=== PATIENT | male | born 1990 | race African-American/Black ===

== ENCOUNTER 2024-03-14 13:45 | Emergency (ER) | payer SELFPAY ==
[~2024-03-14] VITALS: Ht 177.8 cm; Wt 60.0 kg
[2024-03-14 13:48] VITALS: O2SAT 98
[2024-03-14] MEDS: HALOPERIDOL LACTATE 5MG/ML VIAL IM ONE (14:11)
[2024-03-14 14:59] LABS: BASOPHILS % 1.4 % (0.0-2.0); EOSINOPHILS % 3.4 % (0.0-5.0); HEMATOCRIT. 37.2 % (42.0-52.0); HEMOGLOBIN. 12.7 g/dL (14.0-18.0); LYMPHOCYTES % 21.4 % (20.0-50.0); MEAN CORPUSCULAR HEMOGLOBIN 31.1 pg (28.0-32.0); MEAN CORPUSCULAR HGB CONC 34.2 g/dL (31.0-37.0); MEAN CORPUSCULAR VOLUME 90.9 fL (80.0-94.0); MEAN PLATELET VOLUME 7.8 fl (7.4-10.4); MONOCYTES % 9.6 % (2.0-8.0); NEUTROPHILS % 64.2 % (40.0-76.0); PLATELET 245 x1000/uL (130-400); WHITE BLOOD COUNT 3.5 x1000/uL (4.5-11.0)
[2024-03-14 15:02] LABS: CARBON DIOXIDE 29 mEq/L (21-32); CHLORIDE 108 mEq/L (98-107); POTASSIUM 3.9 mEq/L (3.5-5.1); SODIUM 141 mEq/L (136-145)
[2024-03-14 15:03] LABS: CALCIUM 8.9 mg/dL (8.7-10.4)
[2024-03-14 15:07] LABS: CREATININE 0.9 mg/dL (0.6-1.3)
[2024-03-14 15:08] LABS: GLUCOSE 116 mg/dL (70-105); UREA NITROGEN BLOOD 15 mg/dL (9-23)
[2024-03-14 15:09] LABS: ACETAMINOPHEN < 2 ug/mL (10-30); ALANINE AMINOTRANSFERASE 27 IU/L (10-49); ALBUMIN 3.9 g/dL (3.2-4.8); ASPARTATE AMINOTRANSFERASE 49 IU/L (<34)
[2024-03-14 15:10] LABS: BILIRUBIN DIRECT 0.3 mg/dL (<=3.0); BILIRUBIN TOTAL 0.8 mg/dL (0.1-1.0); PROTEIN TOTAL 6.2 g/dL (6.0-8.3)
[2024-03-14 15:12] LABS: THYROID STIMULATING HORMONE 0.38 uIU/mL (0.55-4.78)
[2024-03-14 15:18] LABS: ETHANOL BLOOD < 10 mg/dL (<10)
[2024-03-14] MEDS: LORAZEPAM 2MG/ML INJ IM ONE (21:40)
[2024-03-15 06:07] LABS: CLARITY URINE CLEAR (CLEAR); COLOR URINE DARK YELLOW (YELLOW); GLUCOSE URINE NEGATIVE (NEGATIVE); KETONES URINE NEGATIVE (NEGATIVE); LEUKOCYTE ESTERASE URINE NEGATIVE (NEGATIVE); NITRITE URINE NEGATIVE (NEGATIVE); OCCULT BLOOD URINE NEGATIVE (NEGATIVE); PROTEIN URINE NEGATIVE (NEGATIVE)
[2024-03-15 06:14] LABS: *AMPHETAMINES SCREEN URINE NEGATIVE (NEGATIVE); *BARBITURATES SCREEN URINE NEGATIVE (NEGATIVE); *BENZODIAZEPINES SCREEN URINE NEGATIVE (NEGATIVE); *COCAINE SCREEN URINE NEGATIVE (NEGATIVE); METHADONE URINE SCREEN NEGATIVE (NEGATIVE); OPIATES URINE SCREEN NEGATIVE (NEGATIVE)
[2024-03-15 06:15] LABS: CANNABINOID URINE SCREEN PRESUMPTIVE POSITIVE (NEGATIVE); ECSTASY MDMA SCREEN URINE NEGATIVE (NEGATIVE); PHENCYCLIDINE URINE SCREEN NEGATIVE (NEGATIVE)
[2024-03-15] MEDS: QUETIAPINE FUMARATE 25MG TABLET PO NR (13:43)
[2024-03-15] MEDS: LORAZEPAM 2MG/ML INJ IM NR (13:44)
[2024-03-15 15:02] VITALS: BP 113/39; PULSE 90; RESP 18; TEMP 97.7
[2024-03-15] MEDS ORDERED: QUETIAPINE FUMARATE 50MG TABLET PO SCH (21:00)
== END 2024-03-15 17:49 | disposition left against medical advice (07) ==
LOC: ER 13:45
DX: F23 Brief psychotic disorder (principal); Z20.822 Contact with and (suspected) exposure to COVID-19
CPT/HCPCS: 80076; 80048; 80307; 80329; 80320; 84443; 85025; 36415; 96372; 99285; 87426; 80305; 81003; J1630; Z7610 ×2; J2060; G0480

== ENCOUNTER 2024-08-08 22:54 | Emergency (ER) | payer MEDICAID ==
[~2024-08-08] VITALS: Ht 177.8 cm; Wt 64.0 kg
[~2024-08-08 22:54] MED LIST: ACET-2708 MT; HALO5TAB MT; IBUP-2029 MT
[2024-08-08 23:05] VITALS: O2SAT 99
[2024-08-08 23:34] VITALS: BP 154/78; PULSE 80; RESP 18; TEMP 36.78072; O2SAT 99
[2024-08-09] MEDS ORDERED: NAPR-1176 MT (00:17)
[2024-08-09 00:30] VITALS: TEMP 98.2
[2024-08-09] MEDS: ACETAMINOPHEN 325MG TABLET PO ONE (00:30)
== END 2024-08-09 00:28 | disposition home or self-care (01) ==
LOC: ER 22:54
DX: K76.89 Other specified diseases of liver (principal); F12.10 Cannabis abuse, uncomplicated; Z79.899 Other long term (current) drug therapy; Z79.1 Long term (current) use of non-steroidal anti-inflammatories (NSAID)
CPT/HCPCS: 99283

== ENCOUNTER 2024-08-09 01:16 | Emergency (ER) | payer MEDICAID ==
[~2024-08-09] VITALS: Ht 177.8 cm; Wt 64.0 kg
[~2024-08-09 01:16] MED LIST changes: +NAPR-1176 MT
[2024-08-09 01:37] VITALS: O2SAT 98
[2024-08-09 01:39] VITALS: BP 111/70; PULSE 66; RESP 18; TEMP 36.89184; O2SAT 98
[2024-08-09 03:35] LABS: BASOPHILS % 1.1 % (0.0-2.0); CHLORIDE 107 mEq/L (98-107); EOSINOPHILS % 7.8 % (0.0-5.0); HEMATOCRIT. 42.1 % (42.0-52.0); HEMOGLOBIN. 14.1 g/dL (14.0-18.0); LYMPHOCYTES % 34.3 % (20.0-50.0); MEAN CORPUSCULAR HGB CONC 33.5 g/dL (31.0-37.0); MEAN CORPUSCULAR VOLUME 92.5 fL (80.0-94.0); MEAN PLATELET VOLUME 8.1 fl (7.4-10.4); MONOCYTES % 14.7 % (2.0-8.0); NEUTROPHILS % 42.1 % (40.0-76.0); PLATELET 252 x1000/uL (130-400); POTASSIUM 5.1 mEq/L (3.5-5.1); RED BLOOD CELL COUNT 4.56 mill/uL (4.7-6.1); SODIUM 141 mEq/L (136-145); WHITE BLOOD COUNT 4.3 x1000/uL (4.5-11.0)
[2024-08-09 03:36] LABS: CARBON DIOXIDE 29 mEq/L (21-32)
[2024-08-09 03:41] LABS: GLUCOSE 97 mg/dL (70-105); UREA NITROGEN BLOOD 9 mg/dL (9-23)
[2024-08-09 03:43] LABS: ACETAMINOPHEN < 2 ug/mL (10-30)
== END 2024-08-09 11:28 | disposition left against medical advice (07) ==
LOC: ER 01:16
DX: F20.9 Schizophrenia, unspecified (principal); F12.90 Cannabis use, unspecified, uncomplicated; Z76.0 Encounter for issue of repeat prescription; Z79.899 Other long term (current) drug therapy
CPT/HCPCS: 36415; 80048; 80307; 80329; 85025; 99283

== ENCOUNTER 2024-08-11 01:08 | Emergency (ER) | payer MEDICAID ==
[~2024-08-11] VITALS: Ht 177.8 cm; Wt 68.3 kg
[2024-08-11 01:35] VITALS: O2SAT 99
[2024-08-11 02:51] VITALS: BP 106/61; PULSE 71; RESP 20; TEMP 37.00296; O2SAT 99
== END 2024-08-11 02:51 | disposition home or self-care (01) ==
LOC: ER 01:08
DX: R10.84 Generalized abdominal pain (principal); M79.601 Pain in right arm; M79.602 Pain in left arm; F20.9 Schizophrenia, unspecified
CPT/HCPCS: 99282

== ENCOUNTER 2024-09-01 03:23 | Emergency (ER) | payer MEDICAID ==
[~2024-09-01] VITALS: Ht 177.8 cm; Wt 66.8 kg
[2024-09-01 04:55] VITALS: O2SAT 99
[2024-09-01] MEDS ORDERED: HALO5TAB MT (05:02)
[2024-09-01 05:33] VITALS: BP 113/77; PULSE 119; RESP 18; TEMP 37.05852; O2SAT 99
== END 2024-09-01 05:32 | disposition home or self-care (01) ==
LOC: ER 03:30
DX: Z76.0 Encounter for issue of repeat prescription (principal); Z79.899 Other long term (current) drug therapy
CPT/HCPCS: 99281

== ENCOUNTER 2024-09-01 10:50 | Emergency (ER) | payer MEDICAID ==
[~2024-09-01] VITALS: Ht 177.8 cm; Wt 77.1 kg
[2024-09-01 10:54] VITALS: BP 108/67; PULSE 86; RESP 16; TEMP 98.3; O2SAT 100
== END 2024-09-01 15:55 | disposition home or self-care (01) ==
LOC: ER 10:58
DX: F20.9 Schizophrenia, unspecified (principal); Z76.0 Encounter for issue of repeat prescription; Z79.899 Other long term (current) drug therapy
CPT/HCPCS: 99281

== ENCOUNTER 2024-09-01 16:01 | Emergency (ER) | payer MEDICAID ==
[~2024-09-01] VITALS: Ht 177.8 cm; Wt 77.1 kg
[2024-09-01 16:23] VITALS: BP 110/67; PULSE 92; RESP 16; TEMP 98.9; O2SAT 100
== END 2024-09-01 19:00 | disposition left against medical advice (07) ==
LOC: ER 16:01
DX: Z00.8 Encounter for other general examination (principal); Z53.21 Procedure and treatment not carried out due to patient leaving prior to being seen by health care provider

== ENCOUNTER 2024-09-03 11:49 | Emergency (ER) | payer MEDICAID ==
[~2024-09-03] VITALS: Ht 175.3 cm; Wt 66.0 kg
[2024-09-03 12:08] VITALS: BP 98/67; PULSE 117; RESP 18; TEMP 98.2; O2SAT 98
[2024-09-04] MEDS ORDERED: FAMO-135 MT (15:13)
[2024-09-04] MEDS ORDERED: IBUP-2029 MT (18:29)
== END 2024-09-03 16:20 | disposition home or self-care (01) ==
LOC: ER 11:49
DX: K76.89 Other specified diseases of liver (principal); Z00.00 Encounter for general adult medical examination without abnormal findings; Z79.899 Other long term (current) drug therapy
CPT/HCPCS: 99281

== ENCOUNTER 2024-09-03 16:21 | Emergency (ER) | payer MEDICAID ==
[~2024-09-03] VITALS: Ht 175.3 cm; Wt 70.0 kg
[2024-09-03 16:32] VITALS: O2SAT 99
[2024-09-03 22:51] LABS: EOSINOPHILS % 2.1 % (0.0-5.0); HEMATOCRIT. 45.9 % (42.0-52.0); HEMOGLOBIN. 15.7 g/dL (14.0-18.0); LYMPHOCYTES % 28.4 % (20.0-50.0); MEAN CORPUSCULAR HEMOGLOBIN 31.4 pg (28.0-32.0); MEAN CORPUSCULAR HGB CONC 34.3 g/dL (31.0-37.0); MEAN CORPUSCULAR VOLUME 91.7 fL (80.0-94.0); MONOCYTES % 7.5 % (2.0-8.0); PLATELET 289 x1000/uL (130-400); RED BLOOD CELL COUNT 5.01 mill/uL (4.7-6.1); RED CELL DISTRIBUTION WIDTH 12.9 % (11.6-14.6); WHITE BLOOD COUNT 5.2 x1000/uL (4.5-11.0)
[2024-09-03 22:57] LABS: CHLORIDE 107 mEq/L (98-107); POTASSIUM 4.3 mEq/L (3.5-5.1); SODIUM 142 mEq/L (136-145)
[2024-09-03 22:58] LABS: CALCIUM 10.3 mg/dL (8.7-10.4); CARBON DIOXIDE 29 mEq/L (21-32)
[2024-09-03 23:03] LABS: GLUCOSE 97 mg/dL (70-105); UREA NITROGEN BLOOD 13 mg/dL (9-23)
[2024-09-03 23:05] LABS: ACETAMINOPHEN < 2 ug/mL (10-30)
[2024-09-03 23:06] LABS: ETHANOL BLOOD < 10 mg/dL (<10)
[2024-09-04] MEDS: HALOPERIDOL LACTATE 5MG/ML VIAL IM STA (02:42)
[2024-09-04 02:43] LABS: CLARITY URINE CLEAR (CLEAR); COLOR URINE DARK YELLOW (YELLOW); GLUCOSE URINE NEGATIVE (NEGATIVE); KETONES URINE TRACE (NEGATIVE); LEUKOCYTE ESTERASE URINE NEGATIVE (NEGATIVE); NITRITE URINE NEGATIVE (NEGATIVE); OCCULT BLOOD URINE NEGATIVE (NEGATIVE); PH URINE 5.5 (4.5-8.0); PROTEIN URINE TRACE (NEGATIVE); SPECIFIC GRAVITY URINE 1.037 (1.005-1.030); UROBILINOGEN URINE 0.2 E.U./dL (0.2-1.0)
[2024-09-04 02:56] LABS: *AMPHETAMINES SCREEN URINE NEGATIVE (NEGATIVE); *BARBITURATES SCREEN URINE NEGATIVE (NEGATIVE); *BENZODIAZEPINES SCREEN URINE NEGATIVE (NEGATIVE); *COCAINE SCREEN URINE NEGATIVE (NEGATIVE)
[2024-09-04 02:57] LABS: CANNABINOID URINE SCREEN NEGATIVE (NEGATIVE); ECSTASY MDMA SCREEN URINE NEGATIVE (NEGATIVE); METHADONE URINE SCREEN NEGATIVE (NEGATIVE); OPIATES URINE SCREEN NEGATIVE (NEGATIVE); PHENCYCLIDINE URINE SCREEN NEGATIVE (NEGATIVE)
[2024-09-04 05:40] LABS: RBC URINE NONE SEEN /hpf (0-2); WBC URINE 0-2 /hpf (0-2)
[2024-09-04 05:41] LABS: BACTERIA URINE NONE SEEN; SQUAMOUS EPITHELIAL CELL URINE NONE SEEN /lpf (RARE/1+)
[2024-09-04 10:00] VITALS: BP 112/65; PULSE 73; RESP 16; TEMP 36.83628; O2SAT 98
[2024-09-04] MEDS ORDERED: FAMO-135 MT (15:13)
[2024-09-04] MEDS ORDERED: IBUP-2029 MT (18:29)
[2024-09-05] MEDS ORDERED: HALO5TAB2 MT (00:08)
== END 2024-09-04 14:10 | disposition home or self-care (01) ==
LOC: ER 16:21
DX: F23 Brief psychotic disorder (principal); Z79.899 Other long term (current) drug therapy; Z79.1 Long term (current) use of non-steroidal anti-inflammatories (NSAID); Z59.00 Homelessness unspecified; Z20.822 Contact with and (suspected) exposure to COVID-19
CPT/HCPCS: 36415; 80048; 80305; 80307; 80320; 80329; 81003; 85025; 87426; 93005; 99285; G0480

== ENCOUNTER 2024-09-04 12:19 | Emergency (ER) | payer MEDICAID ==
[~2024-09-04] VITALS: Ht 177.8 cm; Wt 82.0 kg
[2024-09-04 12:28] VITALS: O2SAT 98
[2024-09-04] MEDS: ACETAMINOPHEN 325MG TABLET PO NR (13:30)
[2024-09-04] MEDS ORDERED: FAMOTIDINE 20MG TABLET PO ONE (13:30)
[2024-09-04] MEDS ORDERED: ACETAMINOPHEN 325MG TABLET PO ONE (13:30)
[2024-09-04 14:45] LABS: BASOPHILS % 0.8 % (0.0-2.0); EOSINOPHILS % 1.9 % (0.0-5.0); HEMATOCRIT. 45.7 % (42.0-52.0); HEMOGLOBIN. 15.4 g/dL (14.0-18.0); LYMPHOCYTES % 19.4 % (20.0-50.0); MEAN CORPUSCULAR HEMOGLOBIN 30.7 pg (28.0-32.0); MEAN CORPUSCULAR HGB CONC 33.7 g/dL (31.0-37.0); MEAN CORPUSCULAR VOLUME 91.1 fL (80.0-94.0); NEUTROPHILS % 69.9 % (40.0-76.0); PLATELET 301 x1000/uL (130-400); RED BLOOD CELL COUNT 5.02 mill/uL (4.7-6.1); RED CELL DISTRIBUTION WIDTH 12.9 % (11.6-14.6); WHITE BLOOD COUNT 4.5 x1000/uL (4.5-11.0)
[2024-09-04 14:56] LABS: CARBON DIOXIDE 31 mEq/L (21-32); CHLORIDE 105 mEq/L (98-107); POTASSIUM 4.3 mEq/L (3.5-5.1); SODIUM 142 mEq/L (136-145)
[2024-09-04 14:57] LABS: CALCIUM 10.2 mg/dL (8.7-10.4)
[2024-09-04 15:01] LABS: GLUCOSE 63 mg/dL (70-105)
[2024-09-04 15:02] LABS: UREA NITROGEN BLOOD 16 mg/dL (9-23)
[2024-09-04 15:03] LABS: ALANINE AMINOTRANSFERASE 17 IU/L (10-49); ALBUMIN 4.6 g/dL (3.2-4.8); ASPARTATE AMINOTRANSFERASE 21 IU/L (<34)
[2024-09-04 15:04] LABS: BILIRUBIN TOTAL 0.7 mg/dL (0.1-1.0); PROTEIN TOTAL 7.5 g/dL (6.0-8.3)
[2024-09-04] MEDS ORDERED: FAMO-135 MT (15:13)
[2024-09-04] MEDS: FAMOTIDINE 20MG TABLET PO NR (16:11)
[2024-09-04 16:12] VITALS: BP 100/60; PULSE 98; RESP 19; TEMP 37.00296; O2SAT 98
[2024-09-04] MEDS ORDERED: IBUP-2029 MT (18:29)
[2024-09-05] MEDS ORDERED: HALO5TAB2 MT (00:08)
== END 2024-09-04 16:14 | disposition home or self-care (01) ==
LOC: ER 12:19
DX: R10.13 Epigastric pain (principal); F20.9 Schizophrenia, unspecified; Z79.899 Other long term (current) drug therapy
CPT/HCPCS: 36415; 80053; 85025; 99283

== ENCOUNTER 2024-09-04 17:41 | Emergency (ER) | payer MEDICAID ==
[~2024-09-04] VITALS: Ht 177.8 cm; Wt 73.0 kg
[~2024-09-04 17:41] MED LIST changes: +FAMO-135 MT
[2024-09-04 17:46] VITALS: O2SAT 99
[2024-09-04 17:47] VITALS: BP 133/84; PULSE 100; RESP 16; TEMP 98.6; O2SAT 98
[2024-09-04] MEDS ORDERED: IBUP-2029 MT (18:29)
[2024-09-05] MEDS ORDERED: HALO5TAB2 MT (00:08)
== END 2024-09-05 01:04 | disposition left against medical advice (07) ==
LOC: ER 17:41
DX: M79.671 Pain in right foot (principal); F20.9 Schizophrenia, unspecified; Z79.899 Other long term (current) drug therapy; Z79.1 Long term (current) use of non-steroidal anti-inflammatories (NSAID)
CPT/HCPCS: 29505; 73630; 99283

== ENCOUNTER 2024-09-04 21:43 | Emergency (ER) | payer MEDICAID ==
[~2024-09-04] VITALS: Ht 167.6 cm; Wt 63.0 kg
[2024-09-04 22:10] VITALS: O2SAT 99
[2024-09-05] MEDS ORDERED: HALO5TAB2 MT (00:08)
[2024-09-05 02:39] VITALS: BP 129/71; PULSE 75; RESP 18; TEMP 36.72516; O2SAT 100
== END 2024-09-05 02:43 | disposition home or self-care (01) ==
LOC: ER 21:43
DX: F20.9 Schizophrenia, unspecified (principal); Z76.0 Encounter for issue of repeat prescription; Z79.1 Long term (current) use of non-steroidal anti-inflammatories (NSAID); Z79.899 Other long term (current) drug therapy
CPT/HCPCS: 99281

== ENCOUNTER 2024-09-05 09:13 | Emergency (ER) | payer MEDICAID ==
[~2024-09-05] VITALS: Ht 172.7 cm; Wt 83.0 kg
[~2024-09-05 09:13] MED LIST changes: +HALO5TAB2 MT
[2024-09-05 09:17] VITALS: O2SAT 99
[2024-09-05 10:23] VITALS: BP 133/64; PULSE 85; RESP 16; TEMP 98.6; O2SAT 98
[2024-09-05] MEDS: HALOPERIDOL 5MG TABLET PO ONE (10:46)
== END 2024-09-05 10:47 | disposition home or self-care (01) ==
LOC: ER 09:53
DX: F29 Unspecified psychosis not due to a substance or known physiological condition (principal); F20.9 Schizophrenia, unspecified; Z79.1 Long term (current) use of non-steroidal anti-inflammatories (NSAID); Z79.899 Other long term (current) drug therapy
CPT/HCPCS: 99283; J1630

== ENCOUNTER 2024-09-05 14:28 | Emergency (ER) | payer SELFPAY ==
[~2024-09-05] VITALS: Ht 175.3 cm; Wt 70.0 kg
[2024-09-05 14:30] VITALS: PULSE 85; RESP 18; O2SAT 99
[2024-09-05 14:42] VITALS: BP 134/88; TEMP 98.9; O2SAT 99
[2024-09-05] MEDS: GUAIFENESIN/DM 600MG/30MG ER TAB 12HR PO ONE (18:38)
== END 2024-09-05 18:40 | disposition home or self-care (01) ==
LOC: ER 14:44
DX: J06.9 Acute upper respiratory infection, unspecified (principal); F20.9 Schizophrenia, unspecified; F41.9 Anxiety disorder, unspecified; F32.A Depression, unspecified
CPT/HCPCS: 99282

== ENCOUNTER 2024-09-05 23:48 | Emergency (ER) | payer SELFPAY ==
[~2024-09-05] VITALS: Ht 175.3 cm; Wt 77.0 kg
[2024-09-06 00:30] VITALS: BP 147/75; PULSE 78; RESP 18; TEMP 97.1; O2SAT 99
[2024-09-06 01:01] LABS: EOSINOPHILS % 4.9 % (0.0-5.0); HEMATOCRIT. 45.7 % (42.0-52.0); HEMOGLOBIN. 15.7 g/dL (14.0-18.0); LYMPHOCYTES % 37.9 % (20.0-50.0); MEAN CORPUSCULAR HEMOGLOBIN 31.5 pg (28.0-32.0); MEAN CORPUSCULAR HGB CONC 34.4 g/dL (31.0-37.0); MEAN CORPUSCULAR VOLUME 91.5 fL (80.0-94.0); MEAN PLATELET VOLUME 7.8 fl (7.4-10.4); MONOCYTES % 11.2 % (2.0-8.0); PLATELET 270 x1000/uL (130-400); RED BLOOD CELL COUNT 4.99 mill/uL (4.7-6.1); RED CELL DISTRIBUTION WIDTH 12.8 % (11.6-14.6); WHITE BLOOD COUNT 3.5 x1000/uL (4.5-11.0)
[2024-09-06 01:06] LABS: CARBON DIOXIDE 30 mEq/L (21-32); CHLORIDE 105 mEq/L (98-107); SODIUM 140 mEq/L (136-145)
[2024-09-06 01:07] LABS: CALCIUM 9.8 mg/dL (8.7-10.4)
[2024-09-06 01:12] LABS: CREATININE 0.9 mg/dL (0.6-1.3); GLUCOSE 94 mg/dL (70-105); UREA NITROGEN BLOOD 9 mg/dL (9-23)
[2024-09-06 01:14] LABS: ALANINE AMINOTRANSFERASE 20 IU/L (10-49); ALBUMIN 4.7 g/dL (3.2-4.8); ASPARTATE AMINOTRANSFERASE 27 IU/L (<34); BILIRUBIN DIRECT 0.3 mg/dL (<=3.0); PROTEIN TOTAL 7.8 g/dL (6.0-8.3)
== END 2024-09-06 04:45 | disposition home or self-care (01) ==
LOC: ER 23:48
DX: R10.9 Unspecified abdominal pain (principal); F41.9 Anxiety disorder, unspecified; F32.A Depression, unspecified; F20.9 Schizophrenia, unspecified; Z79.899 Other long term (current) drug therapy
CPT/HCPCS: 36415; 80048; 80076; 85025; 99283

== ENCOUNTER 2024-09-06 06:08 | Emergency (ER) | payer SELFPAY ==
[~2024-09-06] VITALS: Ht 165.1 cm; Wt 68.7 kg
[2024-09-06 06:15] VITALS: BP 121/72; PULSE 89; RESP 15; TEMP 98; O2SAT 99
== END 2024-09-06 08:04 | disposition home or self-care (01) ==
LOC: ER 06:18
DX: B34.9 Viral infection, unspecified (principal); F20.9 Schizophrenia, unspecified; F41.9 Anxiety disorder, unspecified; F32.9 Major depressive disorder, single episode, unspecified; Z79.1 Long term (current) use of non-steroidal anti-inflammatories (NSAID); Z79.899 Other long term (current) drug therapy
CPT/HCPCS: 99281

== ENCOUNTER 2024-09-06 14:52 | Emergency (ER) | payer SELFPAY ==
[~2024-09-06] VITALS: Ht 177.8 cm; Wt 72.0 kg
[2024-09-06 14:54] VITALS: BP 125/80; TEMP 98.3; O2SAT 99
[2024-09-06 14:56] VITALS: PULSE 88; RESP 16; O2SAT 99
[2024-09-06] MEDS: GUAIFENESIN/DM 600MG/30MG ER TAB 12HR PO PRN (19:04)
== END 2024-09-06 18:25 | disposition home or self-care (01) ==
LOC: ER 14:52
DX: J06.9 Acute upper respiratory infection, unspecified (principal); F20.9 Schizophrenia, unspecified; F32.9 Major depressive disorder, single episode, unspecified; F41.9 Anxiety disorder, unspecified; Z79.1 Long term (current) use of non-steroidal anti-inflammatories (NSAID); Z79.899 Other long term (current) drug therapy; Z20.822 Contact with and (suspected) exposure to COVID-19
CPT/HCPCS: 87804 ×2; 99283; 87426; Z7610

== ENCOUNTER 2024-09-07 15:06 | Emergency (ER) | payer OTHER ==
[~2024-09-07] VITALS: Ht 177.8 cm; Wt 71.0 kg
[2024-09-07 16:09] VITALS: O2SAT 99
[2024-09-08] MEDS ORDERED: GUAIFENESIN 600MG ER TABLET PO SCH (03:45)
[2024-09-08 04:23] VITALS: BP 109/77; PULSE 85; RESP 17; TEMP 36.83628; O2SAT 98
[2024-09-08] MEDS ORDERED: GUAIFENESIN 600MG ER TABLET PO NR (04:45)
== END 2024-09-08 04:40 | disposition home or self-care (01) ==
LOC: ER 15:06
DX: B34.9 Viral infection, unspecified (principal); F41.9 Anxiety disorder, unspecified; F32.9 Major depressive disorder, single episode, unspecified; J00 Acute nasopharyngitis [common cold]; F20.9 Schizophrenia, unspecified; Z79.1 Long term (current) use of non-steroidal anti-inflammatories (NSAID); Z79.899 Other long term (current) drug therapy
CPT/HCPCS: 71045; 99283

== ENCOUNTER 2024-09-11 02:23 | Emergency (ER) | payer OTHER ==
[~2024-09-11] VITALS: Ht 177.8 cm; Wt 58.0 kg
[2024-09-11 02:34] VITALS: TEMP 98.6; O2SAT 100
[2024-09-11 03:58] VITALS: BP 131/74; PULSE 82; RESP 18; O2SAT 100
[2024-09-11] MEDS ORDERED: GUAI177L6 MT (04:05)
== END 2024-09-11 04:17 | disposition home or self-care (01) ==
LOC: ER 02:23
DX: J06.9 Acute upper respiratory infection, unspecified (principal); F20.9 Schizophrenia, unspecified; F41.9 Anxiety disorder, unspecified; Z79.899 Other long term (current) drug therapy
CPT/HCPCS: 71045; 99283

== ENCOUNTER 2024-09-11 05:40 | Emergency (ER) | payer OTHER ==
[~2024-09-11] VITALS: Ht 177.8 cm; Wt 74.0 kg
[~2024-09-11 05:40] MED LIST changes: +GUAI177L6 MT
[2024-09-11 05:46] VITALS: O2SAT 95
[2024-09-11 05:47] VITALS: BP 156/76; PULSE 79; RESP 16; TEMP 98.3; O2SAT 100
== END 2024-09-11 16:25 | disposition left against medical advice (07) ==
LOC: ER 05:48
DX: R07.9 Chest pain, unspecified (principal); J11.1 Influenza due to unidentified influenza virus with other respiratory manifestations; F32.A Depression, unspecified; F41.9 Anxiety disorder, unspecified; F20.9 Schizophrenia, unspecified; Z53.21 Procedure and treatment not carried out due to patient leaving prior to being seen by health care provider
CPT/HCPCS: 93005

== ENCOUNTER 2024-09-12 02:30 | Emergency (ER) | payer OTHER ==
[~2024-09-12] VITALS: Ht 172.7 cm; Wt 73.0 kg
[2024-09-12 03:09] VITALS: BP 114/89; PULSE 80; RESP 18; TEMP 98; O2SAT 100
== END 2024-09-12 06:07 | disposition home or self-care (01) ==
LOC: ER 02:42
DX: J06.9 Acute upper respiratory infection, unspecified (principal); B97.89 Other viral agents as the cause of diseases classified elsewhere; F20.9 Schizophrenia, unspecified; Z59.00 Homelessness unspecified; Z79.899 Other long term (current) drug therapy
CPT/HCPCS: 99281